=== PATIENT | male | born 1990 | race Caucasian/White ===

== ENCOUNTER 2022-08-12 19:37 | Emergency (ER) | payer OTHER, SELFPAY ==
[2022-08-12 19:46] VITALS: BP 124/62; PULSE 86; RESP 18; TEMP 37.3; O2SAT 100; BMI 23.5
--- NOTE | 2022-08-13 00:11 | ED_ITS ---
HPI - General Adult General Chief complaint: Skin/Abscess/Foreign Body Stated complaint: lump on L arm Time Seen by Provider: 08/12/22 23:28 Source: patient, RN notes reviewed and old records reviewed Mode of arrival: ambulatory Limitations: no limitations History of Present Illness HPI narrative: 32-year-old male who denies any past medical history presents for evaluation of left arm lump with redness. Patient reports for approximately 1 year he has had a small ball/lump to his left forearm just above his elbow He reports over last 2 days he has had redness to the area, increasing pain and the lump has been slowly growing in size Denies any trauma to the area He denies any IV drug abuse Denies any fevers or chills Related Data Previous Rx's Medication Instructions Recorded cephalexin 500 mg capsule 500 mg PO QID #28 caps 08/13/22 Allergies Allergy/AdvReac Type Severity Reaction Status Date / Time No Known Allergies Allergy Verified 08/12/22 21:26 Review of Systems Constitutional: Constitutional: Reports as per HPI, Denies chills, Denies fatigue, Denies fever(s) and Denies headache(s) ENT: Denies headache(s) Cardiovascular: Cardiovascular: Denies chest pain and Denies dyspnea Respiratory: Respiratory: Denies cough and Denies dyspnea Integumentary/Breasts: Skin/Breast: Reports erythema and Reports skin swelling Neurologic: Denies headache(s) and Denies focal weakness Endocrine: Endocrine: Denies fatigue PMFSH Social History Social History Advance Directives: No Advance Directives Information Provided: No Physical Exam ED Vital Signs: Vital Signs - 24 hr 08/12/22 19:46 Temperature 99.2 F Pulse Rate 86 Respiratory Rate 18 Blood Pressure 124/62 Pulse Oximetry 100 Oxygen Delivery Method Room Air BMI result Body Mass Index 23.5 Const General: healthy appearing, comfortable, no acute distress, alert and awake Nutritional Appearance: well nourished Orientation/consciousness: patient oriented x3 HENMT Head: Yes normocephalic and Yes atraumatic Resp Effort & Inspection: normal respiratory effort, able to speak in complete sentences and not labored Skin Other: Patient has an approximately 2 cm area of induration approximately 3 cm distally to the any good a fossa on the radial side. There is approximately 7 cm of erythema extending distally. No fluctuance or open wounds, no drainage. This area was traced with a surgical marker pen Neuro General: patient oriented x3 Cranial nerves: Yes Bilaterally intact EOM present Cognition (Neuro): normal cognition Extrem Other: Moving all extremities well without any obvious deformities Medical Decision Making Medical Decision Making MDM Narrative: Patient likely has infected sebaceous cyst. There is no obvious clear/drainable abscess. There is a indurated area where the patient previously had a lump. An d faint erythema extending distally. This appears to be a simple cellulitis. The patient has no evidence of sepsis, his vital signs are within normal limits. He is not diabetic. Will treat with cephalexin. Patient was given return precautions Differential Diagnosis Abscess Cellulitis Sebaceous cyst Infected sebaceous cyst Discharge Plan Discharge Clinical Impression: Cellulitis Patient Disposition: Home, Self-Care Instructions: Cellulitis (ED) Additional Instructions: You have a skin infection called cellulitis. It appears to be stemming from an area where you may have a sebaceous cyst Take the antibiotic cephalexin 4 times daily for the next 7 days Return to the ER sooner if you develop fevers, chills or the redness is expanding well past the surgical marker pen Prescriptions: New cephalexin 500 mg capsule 500 mg PO QID Qty: 28 0RF
[2022-08-13] MEDS: cephALEXin 500 MG CAPSULE PO (00:14)
== END 2022-08-13 00:26 | disposition home or self-care (01) ==
PROVIDERS: Emergency Provider Emergency Medicine Emergency Medical Services
DX: L03.114 Cellulitis of left upper limb (principal)
CPT/HCPCS: 99282; 99283

== ENCOUNTER → 2024-03-19 13:20 | Outpatient (BNVA) | payer OTHER, SELFPAY | PROVIDERS: Visit Provider Physician Assistant Medical | DX: S29.012A Strain of muscle and tendon of back wall of thorax, initial encounter (principal); W00.0XXA Fall on same level due to ice and snow, initial encounter | CPT/HCPCS: 99202 ==

== ENCOUNTER 2024-10-26 18:17 | Outpatient (REF) | payer BC, OTHER, SELFPAY ==
--- NOTE | ~2024-10-26 | MR_ITS ---
EXAMINATION: MR LUMBAR SPINE WITHOUT CONTRAST CLINICAL INFORMATION: Low back pain. COMPARISON: None available. TECHNIQUE: MRI of the lumbar spine was obtained using routine sequences without contrast. FINDINGS: Last rib-bearing vertebra labeled T12. No bone marrow STIR signal abnormality. Generalized decreased bone marrow signal in all sequences. Decreased intervertebral disc signal at L3-4 and L5-S1. Decreased intervertebral disc height at L5-S1. Schmorl node inferior endplate of L3 with associated hyperintense T2 STIR signal. Grade 1 retrolisthesis L5-S1. Conus medullaris ends at pedicle of L1 with normal signal. T12-L1: No disc herniation. No neuroforamina stenosis. L1-2: No disc herniation. No neuroforamina stenosis. L2-3: Broad-based disc bulging. Facet joint hypertrophy. Decreased AP diameter of the thecal sac. No central spinal canal or neuroforamina stenosis. L3-4: Broad-based disc bulging. Facet joint and ligamentum flavum hypertrophy. Reduced AP diameter of the thecal sac and the neural foramina. L4-5: Broad-based disc bulging abutting the L5 nerve roots on the lateral recesses. Facet joint and ligamentum flavum hypertrophy. Reduced AP diameter of the thecal sac and neuroforamina encroaching the neural elements. L5-S1: Right subarticular and foraminal broad-based disc herniation encroaching the right S1 nerve root. Facet joint hypertrophy bilaterally resulting in bilateral neuroforamina stenosis encroaching the L5 nerve roots. Reduced AP diameter of the thecal sac. No prevertebral compartment hematoma, mass or fluid collections. MR/MR lumbar spine wo con IMPRESSION: Right subarticular and foraminal broad-based disc herniation L5-S1 encroaching right S1 nerve root. Lumbar spondylosis L5-S1 and L4-5 resulting in central spinal canal and bilateral neuroforamina stenosis likely encroaching the neural roots. A lymphoproliferative disorder versus anemia should be considered.. Electronically signed by: Fahad Ruth MD 10/29/2024 07:16 AM EDT
--- OUTSIDE RECORDS SUMMARY | 2024-10-26 18:21 | XMS_ITS | Clinical Summary ---
Author Organization [facility] Address [address] [place] [address] Phone Care Team Providers Care Vascular Radiologist Name Role Phone Rashad Flores MD Unavailable Rian Duran PA-C Primary Care Provider [phone] Allergies No known active allergies Medications ibuprofen (ADVIL ORAL) Take by mouth as needed. Active traZODone (DESYREL) 50 MG tablet Take 0.5 tablets (25 mg total) by mouth nightly at bedtime as needed (insomnia). 7 tablet 10/16/2024 Active doxycycline monohydrate (MONODOX) 100 MG capsule Take 1 capsule (100 mg total) by mouth 2 (two) times a day. 20 capsule 10/19/2024 Active Active Problems Problem Noted Date Diagnosed Date Routine general medical exam ination at a health care facility 10/16/2024 Assessment & Plan (10/16/2024 2:19 PM EDT): We will obtain a CMP, lipid panel, TSH, and fasting glucose. Annual physical 1 year Malaise and fatigue 10/16/2024 Assessment & Plan (10/16/2024 2:21 PM EDT): Patient noted to have some history of insomnia and difficulty sleeping along with noted fatigue and memory issues. Patient notes that the memory issues are mild however the fatigue and insomnia have increased. He does have stress having a family, work and currently remodeling his house. Which could certainly play a role in the symptoms however he also works outside and has been bitten by ticks and has pulled them off. He denies any rashes. He denies any joint pain. -I will obtain vitamin B-12, thiamine, TSH, and Lyme titer. Penile abnormality 10/16/2024 Assessment & Plan (10/16/2024 2:23 PM EDT): Patient mentions that he has decrease sensation well receiving oral sex and vaginal intercourse. He states that he is often able to ejaculate with anal intercourse. Patient notes that he has had to masturbate in order to ejaculate often times after having intercourse. Patient notes that he does not have difficulty obtaining or sustaining an erection. Unclear etiology however concerned about nerve impingement versus other organic issues. He also mentions some anal leakage and therefore I will obtain an MRI of his lumbar/sacrum region given the symptoms to ensure that there is no nerve impingement -I will refer to urology Dr. Edwards Change in bowel habits 10/16/2024 Assessment & Plan (10/16/2024 2:30 PM EDT): Patient with changes in bowel habits over the course the last few months. He mentions that he has had multiple episodes of diarrhea over the course of each month along with noted anal leakage. Patient notes that he does not realize that he has to go and then sometimes notices some wetness. Notes that he sometimes does have solid stools. He also notes that there are times where there is blood noted on the toilet paper however not in the toilet. He has never had a colonoscopy. He does carry family history of colon cancer. No history of Crohn's or ulcerative colitis. He does mention some correlation with certain foods such as greasy and fried foods. Differential diagnosis includes food allergies, Crohn's, ulcerative colitis, IBS, or celiac's. Other options could be secondary to his low back pain -[facility] GI referral - Due to fecal incontinence such as anal leakage and correlation with penile abnormalities and back pain I have ordered MRI lumbar/sacrum imaging studies to be completed. Acute midline low back pain without sciatica Assessment & Plan (10/16/2024 2:27 PM EDT): Patient with a noted back pain who notes that is mainly midline. He denies any noted muscle spasms or radiation of pain weakness or tingling and numbness in his lower extremities. He is also noted to have some anal leakage and with the penile abnormalities I will order a MRI lumbar/sacrum for further evaluation. Other insomnia 10/16/2024 Assessment & Plan (10/16/2024 2:30 PM EDT): Patient with noted to difficulty falling asleep and staying asleep. Of note he does drink a significant amount of fluids prior to going to bed and has a Gatorade at his bedside. Patient notes that he usually gets up 2-3 times a night. He does note that when he is able to get back to sleep he dozes off for a little while and then is back up once again. Since that this has been ongoing since the passing of his dog and getting back in 2022. He also has a . He does have significant amount of stress between home, renovating the house, and work Discussed with him differential diagnoses that can include organic abnormalities such as vitamin deficiencies, thyroid, anxiety. He has tried melatonin in the past however this has not provided any relief. He has not tried Unisom [id number]. He is willing to try trazodone and we will start at a low dose at 25 mg p.o. nightly as needed. He will reach out to us to let us know if this is providing any relief Encounters Date Type Department Care Team Description 10/26/2024 9:29 AM EDT Hospital Encounter [address] [address] Rian Duran PA-C Arrived 10/23/2024 Telephone [facility] [address] [place] [address] Rian Duran PA-C Results 10/22/2024 Telephone [facility] [address] [place] [address] Uma Valencia CNP 10/16/2024 1:29 PM EDT - 10/16/2024 11:59 PM EDT Hospital Encounter [facility] [address] [place] [address] Rian Duran PA-C Discharge Disposition: Home or Self Care 10/16/2024 10:40 AM EDT Office Visit [facility] [address] [place] [address] Rian Duran PA-C Routine general medical examination at a health care facility (Primary Dx); Malaise and fatigue; Penile abnormality; Change in bowel habits; Acute midline low back pain without sciatica; Other insomnia 10/16/2024 Telephone [facility] [address] [place] [address] Rian Duran PA-C MRI testing 10/16/2024 Documentation [facility] [address] [place] [address] Rian Duran PA-C from Last 3 Months Immunizations Immunization Administration Dates Next Due DTP 08/17/1995, 2,1990,10/16,1990 Hepatitis B 06/16/1996,09/17/1995,08/17/1995 Hib, unspecified formulation 09/17/1991, 1990,1990,07/17 Influenza Trivalent Preserva tive Free IM 03/15/2008 MMR 08/17/1995,09/17/1991 Meningococcal MCV4P 03/14/2007 Polio - OPV 08/17/1995, 2,1990,07/17 Td (adult),2 Lf Tetanus Toxo id, PF, Adsorbed 10/25/2003 Tdap 09/06/2023,09/26/2013 Varicella 06/16/1996 Family History Medical History Relation Comments Heart attack Father No Known Problems Mother Colon cancer Paternal Aunt Alzheimer's disease Paternal Great-Grandmother Colon cancer Paternal Great-Grandmother No Known Problems Sister Relation Status Comments Father Alive Mother Alive Paternal Aunt Paternal Great-Grandmother Sister Alive Social History Tobacco Use Types Packs/Day Years Used Date Smoking Tobacco: Never Smokeless Tobacco: Never Tobacco Cessation:Counseling Given: Not Answered Alcohol Use Standard Drinks/Week Comments Yes 0 (1 standard drink = 0.6 oz pure alcohol) 1-2 drinks, Monthly or less, mixed drinks Child or Family Care Answer Date Record ed Do you have problems with on e of the following making it difficult for you to work, study, or receive health care? No 10/16/2024 Education Answer Date Recorded Are you interested in help w ith more adult education (for example, completing high school, GED, job training, learning the [place] language, technical skills, or developing parenting skills)? No 10/16/2024 Are you concerned about learning? Not on file 10/16/2024 No 10/16/2024 Yes 10/16/2024 Food Answer Date Recorded Within the past 6 months we worried whether our food would run out before we got money to buy more. Never True 10/16/2024 Within the past 6 months the food we bought just didn't last and we didn't have enough money to get more. Never True Residential Stability Answer Date Recor ded What is your housing situation today? I have jf sing 10/16/2024 How many times have you move d in the past 12 months? Zero (I did not move) 10/16/2024 Paying for Meds Answer Date Recorded Do you have trouble paying for medicines? No 10/16/2024 Paying Utility Bills Answer Date Record ed Do you have trouble paying your heating or elect ricity bill? No 10/16/2024 Transportation Answer Date Recorded Has the lack of transportati on kept you from medical appointments or from getting medications? No 10/16/2024 Unemployment Answer Date Recorded Are you currently unemployed or working on a part-time or temporary basis, and looking for work? No 10/16/2024 Digital Access Answer Date Recorded No 10/16/2024 Yes 10/16/2024 Do you have reliable internet access at home? Ye s 10/16/2024 Do you have a device (e.g., phone, tablet, computer) with a working camera? Yes 10/16/2024 Intimate Partner Violence Answer Date R ecorded Denied Basic Needs Not on file 10/16/2024 In the past 12 months have y ou been in a relationship with a person who hurts, threatens, or tries to control you? No 10/16/2024 Worried food would run out Not on file 07/15 /2025 In the past 12 months have y ou been in a relationship with a person who hurts, threatens, or tries to control you? No 10/16/2024 Sex and Gender Information Value Date Recorded Sex Assigned at Not on file Legal Sex Male 3:33 PM EST Gender Identity Not on file Sexual Orientation Not on file Last Filed Vital Signs Vital Sign Reading Time Taken Comments Blood Pressure 110/64 10/16/2024 10:53 AM EDT Pulse 60 10/16/2024 10:53 AM EDT Temperature - - Respiratory Rate 21 10/16/2024 10:5 3 AM EDT Oxygen Saturation 98% 10/16/2024 10: 53 AM EDT Inhaled Oxygen Concentration - - Weight 89.3 kg (196 lb 12.8 oz) 025 10:53 AM EDT Height 170.8 cm (5' 7.25 ) 10/16/2024 1 0:53 AM EDT Body Mass Index 30.59 10/16/2024 10:53 AM EDT Plan of Treatment Upcoming Encounters Date Type Department Care Team (Late st Contact Info) Description 01/22/2025 3:20 PM EDT Office Visit [facility] Internal Medicine [address] [place] [address] Rian Duran PA-C [address] [place] [address] 10/22/2025 9:00 AM EDT Office Visit [facility] [address] [place] [address] Rian Duran PA-C [address] [place] [address] Health Maintenance Due Date Last Done Comments COVID-19 VACCINE ( season) 2023 DEPRESSION SCREENING 10/16/2025 10/16/2024 Adult Td,Tdap Booster 09/05/2033 09/06/2023 , 09/26/2013, 10/25/2003 HIB VACCINES Completed 09/17/1991, 11/02, 1990, Additional history exists MENINGOCOCCAL VACCINES (ACWY) Completed 03/14/2007 HEPATITIS C SCREENING Completed 09/28/2022 HIV ONE-TIME SCREENING (18-65 YEARS) Completed 09/28/2022 SMOKING STATUS SCREENING (Once After 26 Yrs) Completed 10/16/2024 HEPATITIS A VACCINES Aged Out No long er eligible based on patient's age to complete this topic MENINGOCOCCAL VACCINES (B) Aged Out N o longer eligible based on patient's age to complete this topic PNEUMOCOCCAL VACCINES (0-49 years) Aged Out No longer eligible based on patient's age to complete this topic Medical Devices Not on file Procedures Procedure Name Priority Date/Time Associated Diagnosis Comments US ABDOMEN COMPLETE (ADULT) Routine 10/26/2024 10:00 AM EDT Elevated LFTs MRI SACRUM Routine 10/16/2024 2:24 PM EDT Acute midline low back pain without sciatica LYME WESTERN BLOT ONLY Routine 1:29 PM EDT LIPID PANEL Routine 10/16/2024 1:29 PM EDT Routine general medical examination at a health care facility TSH WITH REFLEX Routine 10/16/2024 1:29 PM EDT Routine general medical examination at a health care facility COMPREHENSIVE METABOLIC PANEL Routine 10/16/2024 1:29 PM EDT Routine general medical examination at a health care facility GLUCOSE, FASTING Routine 10/16/2024 1:29 PM EDT Routine general medical examination at a health care facility VITAMIN B12 Routine 10/16/2024 1:29 PM EDT Malaise and fatigue VITAMIN B1 (THIAMINE) Routine 10/16/2024 1:29 PM EDT Malaise and fatigue LYME SCREEN WITH REFLEX TO WESTERN BLOT, BLOOD Routine 10/16/2024 1:29 PM EDT Malaise and fatigue MRI LUMBAR SPINE Routine 10/16/2024 12:0 1 PM EDT Change in bowel habits OUTSIDE HIV Routine 09/28/2022 OUTSIDE HEPATITIS C VIRUS SCREENING Routine 09/28/2022 from Last 3 Months or Most Recently Relevant to Health Maintenance Results * US ABDOMEN COMPLETE (ADULT) (10/26/2024 10:00 AM EDT) Anatomical Region Laterality Modality Abdomen Ultrasound 10/26/2024 10:3 1 AM EDT Impressions 10/26/2024 10:33 AM EDT 1. Normal gallbladder. 2. No biliary ductal dilatation. 3. The liver is diffusely echogenic. This is a nonspecific finding indicating diffuse hepatocellular disease and limiting the sensitivity of this exam. In the correct clinical scenario, this commonly represents fatty liver. Within the limitations of this study, there is no sonographic evidence for focal hepatic lesion. Narrative 10/26/2024 10:33 AM EDT US ABDOMEN COMPLETE (ADULT) Referring clinician's provided indication for this examination in [facility]: abnormal hepatic function tests TECHNIQUE: Abdominal Ultrasound Complete. COMPARISON: None FINDINGS: Liver: Echogenic liver. Main Portal Vein: Patent with normal direction of flow. Gallbladder: No gallstones or gallbladder wall thickening. Becerra's Sign: Negative. Biliary: No intrahepatic or extrahepatic biliary ductal dilatation. The common bile duct measures 3 mm. Pancreas: Incompletely visualized. Spleen: The spleen is not enlarged, measuring 11.5 cm Kidneys: The right kidney measures 11.7 cm. The left kidney measures 11.8 cm. No hydronephrosis. No sonographic evidence for solid renal mass or shadowing stone. Aorta: Normal, where visualized sonographically. IVC: Normal intrahepatic segment. Procedure Note Hollis Horne MD - 10/26/2024 US ABDOMEN COMPLETE (ADULT) Referring clinician's provided indication for this examination in [facility]:abnormal hepatic function tests TECHNIQUE: Abdominal Ultrasound Complete. COMPARISON: None FINDINGS: Liver: Echogenic liver. Main Portal Vein: Patent with normal direction of flow. Gallbladder: No gallstones or gallbladder wall thickening. Becerra's Sign: Negative. Biliary: No intrahepatic or extrahepatic biliary ductal dilatation. The common bile duct measures 3 mm. Pancreas: Incompletely visualized. Spleen: The spleen is not enlarged, measuring 11.5 cm Kidneys: The right kidney measures 11.7 cm. The left kidney measures 11.8cm. No hydronephrosis. No sonographic evidence for solid renal mass orshadowing stone. Aorta: Normal, where visualized sonographically. IVC: Normal intrahepatic segment. IMPRESSION: 1. Normal gallbladder. 2. No biliary ductal dilatation. 3. The liver is diffusely echogenic. This is a nonspecific findingindicating diffuse hepatocellular disease and limiting the sensitivity ofthis exam. In the correct clinical scenario, this commonly representsfatty liver. Within the limitations of this study, there is nosonographic evidence for focal hepatic lesion. Rian Duran PA-C IMG US ABDOMEN Final Result * Glucose, fasting (10/16/2024 1:29 PM EDT) FASTING GLUCOSE 88 70 - 95 mg/dL [facility] Blood 10/16/2024 1:29 PM EDT 10/16/2024 1:34 PM EDT Rian Duran PA-C LAB BLOOD ORDERABLES Final Re sult [address] [address] * Lyme Western blot only (10/16/2024 1:29 PM EDT) IGG Immunoblot Negative Negative [facility] [address] IGG BANDS (KDA) p41 kDa [facility] [address] [facility] IGM Immunoblot Negative Negative [facility] [address] [facility] IGM BANDS (KDA) p23 kDa [facility] [address] Interpretation - Lyme SEE NOTE [facility] Comment: (NOTE) Specific serologic response to B. burgdorferi infection is not detected, but cannot rule out early infection during which low or undetectable antibody levels to B. burgdorferi may be present. If clinically indicated, a new serum specimen should be submitted in 7-14 days. ADDITIONAL INFORMATION Per CDC criteria, the Lyme IgG Immunoblot is interpreted as positive if IgG-class antibodies are detected to >=5 B. burgdorferi proteins, and the Lyme IgM Immunoblot is interpreted as positive if IgM-class antibodies are detected to >=2 B. burgdorferi proteins. Immunoblot patterns not meeting these criteria should not be interpreted as positive. Epitopes from certain B. burgdorferi proteins (e.g., p41) are conserved across other bacteria, which may lead to the detection of IgM- and/or IgG-class antibodies on the Lyme disease immunoblots in patients without Lyme disease. Immunoblot should only be ordered on specimens that are positive or equivocal by a FDA-licensed Lyme disease antibody screening test (e.g., EIA). Results of the Lyme IgM immunoblot should not be considered in patients with >= 30 days of symptoms. 10/16/2024 1:29 PM EDT 10/16/2024 1:34 PM EDT Rian Duran PA-C LAB BLOOD ORDERABLES Final Re sult Performing Organization Address [facility]/ZIP Co de Phone Number [facility] [place] [address] * (ABNORMAL) Lyme Screen with Reflex to Immunoblot, Blood (10/16/2024 1:29 PM EDT) [facility] Lyme AB IgG Negative Negative [facility] Lyme AB IgM Equivocal(A) Negative [facility] Comment:The Lyme Disease Ant ibody, Confirmation, Serum (Western Blot) has been reflexed. The results will follow. Blood 10/16/2024 1:29 PM EDT 10/16/2024 1:34 PM EDT Rian Duran PA-C LAB BLOOD ORDERABLES Final Re sult Performing Organization Address City/[facility]/ZIP Co de Phone Number [facility] [address] [place] [address] * (ABNORMAL) Comprehensive metabolic panel (10/16/2024 1:29 PM EDT) SODIUM 140 133 - 146 mmol/L [facility] POTASSIUM 4.4 3.3 - 5.1 mmol/L [facility] CHLORIDE 104 96 - 108 mmol/L [facility] CO2 23 21 - 35 mmol/L [facility] BUN 12 6 - 19 mg/dL [facility] CREATININE 0.80 0.5 - 1.5 mg/dL [facility] GLUCOSE 97 70 - 99 mg/dL [facility] ALBUMIN 4.7 3.9 - 4.8 g/dL [facility] TOTAL PROTEIN 7.9 6.5 - 8.0 g/dL [facility] CALCIUM 9.7 8.4 - 10.3 mg/dL [facility] ALKALINE PHOSPHATASE 83 39 - 117 U/L [facility] TOTAL BILIRUBIN 0.5 0.0 - 1.2 mg/dL [facility] AST 65(H) 0 - 37 U/L [facility] ALT 110(H) 0 - 40 U/L [facility] GLOBULIN 3.2 1 - 4.8 g/dL [facility] EGFR 119 >59 mL/min/1.7 3m2 [facility] Comment:Estimated glomerular filtration rate calculated using the CKD-EPI refit equation. ANION GAP 17 10 - 20 mmol/L [facility] Blood 10/16/2024 1:29 PM EDT 10/16/2024 1:34 PM EDT us Rian Duran PA-C LAB BLOOD ORDERABLES Final Re sult [facility] [address] [place] [address] * TSH with reflex (10/16/2024 1:29 PM EDT) TSH 0.90 0.27 - 4.20 uIU/mL [facility] Blood 10/16/2024 1:29 PM EDT 10/16/2024 1:34 PM EDT Rian Duran PA-C LAB BLOOD ORDERABLES Final Re sult Performing Organization Address [facility]/ZIP Co de Phone Number [address] [address] * Vitamin B1 (thiamine) (10/16/2024 1:29 PM EDT) VITAMIN B1 125 70 - 180 nmol/L [facility] Comment: (NOTE) ADDITIONAL INFORMATION This test was developed and its performance characteristics determined by [facility] in a manner consistent with CLIA requirements. This test has not been cleared or approved by the U.S. Food and Drug Administration. Blood 10/16/2024 1:29 PM EDT 10/16/2024 1:34 PM EDT Rian Duran PA-C LAB BLOOD ORDERABLES Final Re sult Performing Organization Address [facility] Co de Phone Number [facility] [address] [place] [address] * Vitamin B12 (10/16/2024 1:29 PM EDT) VITAMIN B12 481 232 - 1,245 pg/mL [facility] Blood 10/16/2024 1:29 PM EDT 10/16/2024 1:34 PM EDT Rian Duran PA-C LAB BLOOD ORDERABLES Final Re sult Performing Organization Address City/[facility]/ZIP Co de Phone Number [address] [address] * (ABNORMAL) Lipid panel (10/16/2024 1:29 PM EDT) HDL 37 mg/dL [facility] Comment: Interpretation <40 mg/dL: Low HDL cholesterol (major risk factor for CHD) Greater than or equal to 60 mg/dL: High HDL cholesterol ( negative risk factor for CHD) HDL - cholesterol is affected by a number of factors, e.g. smoking, excerise, hormones, sex and age. CHOLESTEROL 182 0 - 240 mg/dL [facility] TRIGLYCERIDES 214(H) 30 - 160 mg/dL [facility] LDL 102 50 - 129 mg/dL [facility] Comment: LDL levels in terms of risk for coronary heart disease: <100 mg/dL: Optimal 100-129 mg/dL: Near or above optimal 130-159 mg/dL: Borderline high 160-189 mg/dL: High >190 mg/dL: Very High CARDIAC RISK RATIO 4.9 3.4 - 5.0 [facility] Blood 10/16/2024 1:29 PM EDT 10/16/2024 1:34 PM EDT Result [facility] Rian Duran PA-C LAB BLOOD ORDERABLES Final Re sult Performing Organization Address City/State/[facility] Co de Phone Number [facility] [address] [place] [address] * Outside Hepatitis C Virus Screening (09/28/2022) Hepatitis C Screening - External Neg Historical Provider LAB BLOOD ORDERABLES Alexandra l Result * OUTSIDE HIV TEST (09/28/2022) HIV - External Neg Historical Provider LAB BLOOD ORDERABLES Alexandra l Result from Last 3 Months or Most Recently Relevant to Health Maintenance Insurance [facility] [place] [place] [address] [place] [address] [place] [address] [place] [address] [facility] Care Teams Vascular Radiologist Relationship Specialty Start Date End Date Rian Duran PA-C [address] [place], [place] [email or web address] PCP - General Physician Artificial Glass [employer] 10/16/24 Rashad Flores MD [address] [place], [place] [email or web address] Insurance Assigned Provider 05/12/24 Additional Source Comments The information contained in this document represents components of the legal health record. It is not the complete legal health record.[facility]
== END 2024-10-26 18:18 | disposition home or self-care (01) ==
LOC: HO.MRI 18:17
PROVIDERS: PCP Physician Assistant Surgical; Visit Provider Physician Assistant Surgical
DX: M54.50 Low back pain, unspecified (principal); R19.4 Change in bowel habit
CPT/HCPCS: 72148

== ENCOUNTER → 2024-10-26 18:29 | Outpatient (BNV) | payer BC, SELFPAY | PROVIDERS: PCP Physician Assistant Surgical; Visit Provider Radiology Diagnostic Radiology | DX: M54.50 Low back pain, unspecified (principal) | CPT/HCPCS: 72148 ==

== ENCOUNTER 2024-11-21 13:55 | Outpatient (AMB) | payer BC, SELFPAY ==
--- NOTE | 2024-11-21 14:08 | A.SPINEOV_ITS ---
Vital Signs 11/21/24 14:12 Height 5 ft 8 in Weight 198 lb BMI 30.1 Intake Visit Reasons: Disc protusion Intake Note: Mr. Dangelo is here today c/o low back pain Restaurant Assistant Required: No Allergies No Known Allergies Allergy (Verified 11/21/24 14:12) Physical Exam Vital Signs: BMI result Body Mass Index 30.1 Assessment & Plan Assessment & Plan (1) Lumbago: Code(s): M54.50 - Low back pain, unspecified Category: Medical Plan Dear ROBERT Duran, Thank you for referring Tee to our office today. He is a pleasant 34-year-old male who comes in today for evaluation of low back pain. 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 He reports that since then he has had occasional flare-ups of low back pain primarily occurring with twisting or reaching behind himself. He denies any shooting pains into his lower extremities, but does state that he has baseline right-sided knee pain from a previous injury. He denies any numbness/tingling associated with the pain. He denies any perineal numbness, or bowel/bladder incontinence. He reports that his pain is the worst when attempting to reach behind himself to scratch his back. He reports that in order to alleviate the pain he will occasionally take ibuprofen or Tylenol. This, he only does when his pain flares up after reaching movements. He has not been to physical therapy for this issue, and has also not attempted injections / prescription medications per his report. PMH: No past medical history reported by the patient. Social hx: The patient does not smoke, reports no substance use. Medications: Ibuprofen, tylenol. Allergies: NKDA Physical exam: The patient has 5/5 strength in his upper and lower extremities. He ambulates well and rises from a seated position without difficulty. His gait is non spastic and nonantalgic. He has no significant sensational deficits to light touch on examination. His reflexes are 2+ intact. (-) bilateral straight leg raise, (-) Merino's, (-) Clonus. Imaging review: MRI of the lumbar spine completed here at [facility] shows a disc herniation at L5-S1 causing what I would call mild-moderate right-sided foraminal stenosis and some effacement of the central canal. Impression: Tee is a pleasant 34-year-old male who comes in today for evaluation chronic longstanding low back pain. He denies any worsening of his symptoms over the course of the next 6 months-1 year. He states that primarily he is only symptomatic when attempting to reach behind him incomplete activity such as scratching his back. This will cause flare-ups of pain in his low back which she needs to treat with Tylenol/ibuprofen. We discussed the continuum of care options for this issue, including physical therapy and cortisone injections, and the patient would like to proceed with evaluation for potential cortisone injections. He states that he has tried physical therapy for his right-sided knee issues in the past, without significant relief of symptoms. I will place a referral for our colleagues in pain management to evaluate him for possible injections at L5-S1. Thank you for allowing us to care for your patient. The total time spent with this visit with this patient was 45 minutes reviewing history, physical exam, MRI imaging review, and implementation of treatment plan or further diagnostic testing Artis Hurt MD,PhD [facility] Orders: Referrals Pain Management Referral M54.50 - Low back pain, unspecified Coding Level of Care Code New Pt Level 4 (39712) Diagnoses Lumbago M54.50
[2024-11-21 14:12] VITALS: BMI 30.1
--- OUTSIDE RECORDS SUMMARY | 2024-11-21 14:52 | XMS_ITS | Clinical Summary ---
Author Organization [facility] Address [address] [place] [address] Phone Care Team Providers Care Painting Instructor Name Role Phone Rashad Flores MD Unavailable Rian Duran PA-C Primary Care Provider [phone] Allergies No known active allergies Medications ibuprofen [...] any relief. He has not tried Unisom [id number]. He is willing to try trazodone and we will start at a low dose at 25 mg p.o. nightly as needed. He will reach out to us to let us know if this is providing any relief Encounters Date Type Department Care Team Description 11/09/2024 Telephone [facility] [address] [place] [address] Rian Duran PA-C Results 10/29/2024 Orders Only [facility] [address] [place] [address] Provider, MD Saji 10/26/2024 9:29 AM EDT - 10/26/2024 11:59 PM EDT Hospital Encounter [address] [address] Rian Duran PA-C Discharge Disposition: Home or Self Care 10/23/2024 Telephone [facility] [address] [place] [address] Rian Duran PA-C Results 10/22/2024 Telephone [facility] [address] [place] [address] Uma Valencia CNP 10/16/2024 1:29 PM EDT - 10/16/2024 11:59 PM EDT Hospital Encounter [facility] [address] [place] [address] Rian Duran PA-C Discharge Disposition: Home or Self Care 10/16/2024 10:40 AM EDT Office Visit [facility] [address] [place] [address] Rian Duran PA-C Routine general medical examination at a health care facility (Primary Dx); Malaise and fatigue; Penile abnormality; Change in bowel habits; Acute midline low back pain without sciatica; Other insomnia 10/16/2024 Telephone [facility] [address] [place] [address] Rian Duran PA-C MRI testing 10/16/2024 Documentation [facility] [address] [place] [address] Rian Duran PA-C from Last 3 Months Immunizations Immunization Administration Dates Next Due DTP 08/17/1995, 2,1990,10/16,1990 Hepatitis B 06/16/1996,09/17/1995,08/17/1995 Hib, unspecified formulation 09/17/1991, 1990,1990,07/17 INFLUENZA, SPLIT VIRUS, TRIVALENT PF 03/15/2008 MMR 08/17/1995,09/17/1991 Meningococcal MCV4P 03/14/2007 Polio [...] high school, GED, job training, learning the Brazilian language, technical skills, or developing parenting skills)? [...] food would run out Not on file 10/16 In the past 12 months have y [...] Description 01/22/2025 3:20 PM EDT Office Visit [facility] [address] [place] [address] Rian Duran PA-C [address] [place] [address] [email or web address] 10/22/2025 9:00 AM EDT Office Visit [facility] [address] [place] [address] Rian Duran PA-C [address] [place] [address] [email or web address] Health Maintenance Due Date Last Done Comments COVID-19 VACCINE (2023- season) 2023 DEPRESSION SCREENING 10/16/2025 10/16/2024 Adult [...] Routine 10/26/2024 10:00 AM EDT Elevated LFTs OUTSIDE MR SPINE REPORT ONLY Routine 10/26/2024 7:45 AM EDT MRI SACRUM Routine 10/16/2024 2:24 PM EDT [...] clinician's provided indication for this examination in Epic: abnormal hepatic function tests TECHNIQUE: Abdominal Ultrasound [...] clinician's provided indication for this examination in Epic:abnormal hepatic function tests TECHNIQUE: Abdominal Ultrasound Complete. [...] PA-C IMG US ABDOMEN Final Result * Outside MR Spine Report Only (10/26/2024 7:45 AM EDT) Historical Provider MD PENALOZA MR SPINE Final Res ult * Glucose, fasting (10/16/2024 1:29 PM EDT) FASTING GLUCOSE 88 70 - 95 mg/dL [facility] Blood 10/16/2024 1:29 PM EDT 10/16/2024 1:34 PM EDT Rian Duran PA-C LAB BLOOD ORDERABLES Final Re sult Performing Organization Address [facility]/ZIP Co de Phone Number [facility] [address] [place] [address] * Lyme Western blot only (10/16/2024 1:29 PM EDT) IGG Immunoblot Negative Negative [facility] MED/[address] IGG BANDS (KDA) p41 kDa [facility]/[address] IGM Immunoblot Negative Negative [facility]/[address] IGM BANDS (KDA) p23 kDa [facility] MED/[address] Interpretation - Lyme SEE NOTE [facility] [address] Comment: (NOTE) Specific serologic response to B. [...] ORDERABLES Final Re sult Performing Organization Address [facility]/ZIP Co de Phone Number [facility] MED/[address] [place] [address] * (ABNORMAL) Lyme Screen with Reflex to Immunoblot, Blood (10/16/2024 1:29 PM EDT) Lyme AB IgG Negative Negative [facility] Lyme AB IgM Equivocal(A) Negative [facility] Comment:The Lyme Disease Ant ibody, Confirmation, Serum (Western Blot) has been reflexed. The results will follow. Blood 10/16/2024 1:29 PM EDT 10/16/2024 1:34 PM EDT us Rian Duran PA-C LAB BLOOD ORDERABLES Final Re sult [address] [address] * (ABNORMAL) Comprehensive metabolic panel (10/16/2024 1:29 PM EDT) SODIUM 140 133 - 146 mmol/L [facility] POTASSIUM 4.4 3.3 - 5.1 mmol/L [facility] CHLORIDE 104 96 - 108 mmol/L [facility] CO2 23 21 - 35 mmol/L [facility] BUN 12 6 - 19 mg/dL [facility] CREATININE 0.80 0.5 - 1.5 mg/dL [facility] GLUCOSE 97 70 - 99 mg/dL [facility] ALBUMIN 4.7 3.9 - 4.8 g/dL [facility] TOTAL PROTEIN 7.9 6.5 - 8.0 g/dL [facility] CALCIUM 9.7 8.4 - 10.3 mg/dL [facility] ALKALINE PHOSPHATASE 83 39 - 117 U/L [facility] TOTAL BILIRUBIN 0.5 0.0 - 1.2 mg/dL [facility] AST 65(H) 0 - 37 U/L [facility] ALT 110(H) 0 - 40 U/L [facility] GLOBULIN 3.2 1 - 4.8 g/dL [facility] EGFR 119 >59 mL/min/1.7 3m2 [facility] Comment:Estimated glomerular filtration rate calculated using the CKD-EPI refit equation. ANION GAP 17 10 - 20 mmol/L [facility] Blood 10/16/2024 1:29 PM EDT 10/16/2024 1:34 PM EDT Rian Duran PA-C LAB BLOOD ORDERABLES Final Re sult Performing Organization Address City/[facility]/ZIP Co de Phone Number [address] [address] * TSH with reflex (10/16/2024 1:29 PM EDT) [facility] TSH 0.90 0.27 - 4.20 uIU/mL [facility] Blood 10/16/2024 1:29 PM EDT 10/16/2024 1:34 PM EDT Rian Duran PA-C LAB BLOOD ORDERABLES Final Re sult Performing Organization Address [facility] de Phone Number [address] [address] * Vitamin B1 (thiamine) (10/16/2024 1:29 PM EDT) [facility] VITAMIN B1 125 70 - 180 nmol/L [facility] [address] Comment: (NOTE) ADDITIONAL INFORMATION This test was developed and its performance characteristics determined by [facility] in a manner consistent with CLIA requirements. This test has not been cleared or approved by the U.S. Food and Drug Administration. Blood 10/16/2024 1:29 PM EDT 10/16/2024 1:34 PM EDT us Rian Duran PA-C LAB BLOOD ORDERABLES Final Re sult Performing Organization Address [facility]/ZIP Co de Phone Number [facility] [address] [place] [address] * Vitamin B12 (10/16/2024 1:29 PM EDT) [facility] VITAMIN B12 481 232 - 1,245 pg/mL [facility] Blood 10/16/2024 1:29 PM EDT 10/16/2024 1:34 PM EDT Rian Duran PA-C LAB BLOOD ORDERABLES Final Re sult Performing Organization Address [facility]/ZIP Co de Phone Number [address] [address] * (ABNORMAL) Lipid panel (10/16/2024 1:29 PM EDT) HDL 37 mg/dL [facility] Comment: Interpretation <40 mg/dL: Low HDL cholesterol (major risk factor for CHD) Greater than or equal to 60 mg/dL: High HDL cholesterol ( negative risk factor for CHD) HDL - cholesterol is affected by a number of factors, e.g. smoking, excerise, hormones, sex and age. CHOLESTEROL 182 0 - 240 mg/dL [facility] TRIGLYCERIDES 214(H) 30 - 160 mg/dL [facility] LDL 102 50 - 129 mg/dL [facility] Comment: LDL levels in terms of risk for coronary heart disease: <100 mg/dL: Optimal 100-129 mg/dL: Near or above optimal 130-159 mg/dL: Borderline high 160-189 mg/dL: High >190 mg/dL: Very High CARDIAC RISK RATIO 4.9 3.4 - 5.0 [facility] Blood 10/16/2024 1:29 PM EDT 10/16/2024 1:34 PM EDT Rian Duran PA-C LAB BLOOD ORDERABLES Final Re sult Performing Organization Address City/[facility]/ZIP Co de Phone Number [address] [address] * Outside Hepatitis C Virus Screening (09/28/2022) Hepatitis C Screening - External Neg Historical Provider LAB BLOOD ORDERABLES Alexandra l Result * OUTSIDE HIV TEST (09/28/2022) HIV - External Neg us Historical Provider LAB BLOOD ORDERABLES Alexandra l Result from Last 3 Months or Most Recently Relevant to Health Maintenance [place] [address] [place] [address] [place] [address] [facility] Care Teams Painting Instructor Relationship Specialty Start Date End Date Rian Duran PA-C [address] [place] [phone] [email or web address] PCP - General Physician Actuarial Science Teacher 10/16/24 Rashad Flores MD [address] [place] [phone] [email or web address] Assigned Provider 05/12/24 Additional Source Comments The information contained in this document represents components of the legal health record. It is not the complete legal health record.[facility]
== END 2024-11-21 14:54 | disposition home or self-care (01) ==
LOC: HO.HNS 13:56
PROVIDERS: PCP Physician Assistant Surgical; Referring Provider Physician Assistant Surgical; Visit Provider Physician Assistant
DX: M54.50 Low back pain, unspecified (principal)
CPT/HCPCS: 99204

== ENCOUNTER 2025-01-04 09:47 | Outpatient (AMB) | payer BC, SELFPAY ==
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
[2025-01-04 09:51] VITALS: BP 110/68; PULSE 61; RESP 16; O2SAT 97; BMI 29.6
--- OUTSIDE RECORDS SUMMARY | 2025-01-04 10:24 | XMS_ITS | Clinical Summary ---
Author Organization [facility] Address [address] [place] [address] Phone Care Team Providers Care Mold Yarn Supervisor Name Role Phone Rashad Flores MD Unavailable Rian Duran PA-C Primary Care Provider [phone] Allergies No known active allergies Medications ibuprofen (ADVIL ORAL) Take by mouth as needed. Active doxycycline monohydrate (MONODOX) 100 MG capsule Take 1 capsule (100 mg total) by mouth 2 (two) times a day. 20 capsule 10/19/2024 Active traZODone (DESYREL) 50 MG tabletIndication s:Other insomnia Take 0.5 tablets (25 mg total) by mouth nightly at bedtime as needed (insomnia). 45 tablet 3 12/05/2024 Active Active Problems Problem Noted Date Diagnosed [...] be secondary to his low back pain -[facility] GI referral - Due to fecal [...] any relief. He has not tried Unisom [id number]. He is willing to try trazodone and we will start at a low dose at 25 mg p.o. nightly as needed. He will reach out to us to let us know if this is providing any relief Encounters Date Type Department Care Team Description 12/05/2024 Refill [facility] [address] [place] [address] Rian Duran PA-C Medication Refill 11/09/2024 Telephone [facility] [address] [facility] [address] Rian Duran PA-C Results 10/29/2024 Orders Only [facility] [address] [facility] [address] Provider, MD Saji 10/26/2024 9:29 AM EDT - 10/26/2024 11:59 PM EDT Hospital Encounter [address] [address] Rian Duran PA-C Discharge Disposition: Home or Self Care 10/23/2024 Telephone [facility] [address] [facility] [place] [address] Rian Duran PA-C Results 10/22/2024 Telephone [facility] [address] [place] [address] Uma Valencia CNP 10/16/2024 1:29 PM EDT - 10/16/2024 11:59 PM EDT Hospital Encounter [facility] [address] [place] [address] Rian Duran PA-C Discharge Disposition: Home or Self Care 10/16/2024 10:40 AM EDT Office Visit [facility] [address] [place] [address] Rian Duran PA-C Routine general medical examination at a health care facility (Primary Dx); Malaise and fatigue; Penile abnormality; Change in bowel habits; Acute midline low back pain without sciatica; Other insomnia 10/16/2024 Telephone [facility] [address] [place] [address] Rian Duran PA-C MRI testing 10/16/2024 Documentation [facility] [address] [place] [address] Rian Duran PA-C from Last 3 Months [...] high school, GED, job training, learning the Martiniquais language, technical skills, or developing parenting skills)? [...] Description 01/22/2025 3:20 PM EDT Office Visit [facility] [address] [place] [address] Rian Duran PA-C [address] [place] [address] 10/22/2025 9:00 AM EDT [facility] [place] [facility] [address] [place] [address] Rian Duran PA-C [address] [place] [address] [email or web address] Health Maintenance Due Date Last Done Comments INFLUENZA VACCINE (#1) 2024 03/15/2008 COVID-19 VACCINE ( season) 2024 DEPRESSION SCREENING 10/16/2025 10/16/2024 Adult Td,Tdap Booster [...] EDT Routine general medical examination at a [facility] care facility GLUCOSE, FASTING Routine 10/16/2024 1:29 PM EDT Routine general medical examination at a [facility] facility VITAMIN B12 Routine 10/16/2024 1:29 [...] nosonographic evidence for focal hepatic lesion. Rian PENALOZA US ABDOMEN Final Result * Outside MR Spine Report Only (10/26/2024 7:45 AM EDT) us Historical Provider MD PENALOZA MR SPINE Final Res ult * Glucose, fasting (10/16/2024 1:29 PM EDT) FASTING GLUCOSE 88 70 - 95 mg/dL [facility] Blood 10/16/2024 1:29 PM EDT 10/16/2024 1:34 PM EDT us Rian Duran PA-C LAB BLOOD ORDERABLES Final Re sult [facility] [address] [place] [address] * Lyme Western blot only (10/16/2024 1:29 PM EDT) Pathologist [facility] IGG Immunoblot Negative Negative [facility] [address] IGG BANDS (KDA) p41 kDa [facility]PATH [address] IGM Immunoblot Negative Negative [facility]PATH [address] IGM BANDS (KDA) p23 kDa [facility]PATH [address] Interpretation - Lyme SEE NOTE [facility] Comment: (NOTE) Specific serologic [...] ORDERABLES Final Re sult Performing Organization Address City/[facility]/ZIP Co de Phone Number [facility] [address] [place] [address] * (ABNORMAL) Lyme Screen with Reflex to Immunoblot, Blood (10/16/2024 1:29 PM EDT) Pathologist [facility] Lyme AB IgG Negative Negative [facility] Lyme AB IgM Equivocal(A) Negative [facility] Comment:The Lyme Disease Ant ibody, Confirmation, Serum (Western Blot) has been reflexed. The results will follow. Blood 10/16/2024 1:29 PM EDT 10/16/2024 1:34 PM EDT Rian Duran PA-C LAB BLOOD ORDERABLES Final Re [facility] Performing Organization Address [facility] Co de Phone Number [address] [address] * (ABNORMAL) Comprehensive metabolic panel (10/16/2024 1:29 PM EDT) [facility] SODIUM 140 133 - 146 mmol/L [facility] POTASSIUM 4.4 3.3 - 5.1 mmol/L [facility] CHLORIDE 104 96 - 108 mmol/L [facility] CO2 23 21 - 35 mmol/L [facility] BUN 12 6 - 19 mg/dL [facility] CREATININE 0.80 0.5 - 1.5 mg/dL [facility] GLUCOSE 97 70 - 99 mg/dL [facility] ALBUMIN 4.7 3.9 - 4.8 g/dL [facility] TOTAL PROTEIN 7.9 6.5 - 8.0 g/dL [facility] CALCIUM 9.7 8.4 - 10.3 mg/dL [facility] ALKALINE PHOSPHATASE 83 39 - 117 U/L [facility] TOTAL BILIRUBIN 0.5 0.0 - 1.2 mg/dL [facility] AST 65(H) 0 - 37 U/L [facility] ALT 110(H) 0 - 40 U/L [facility] GLOBULIN 3.2 1 - 4.8 g/dL [facility] EGFR 119 >59 mL/min/1.7 3m2 [facility] Comment:Estimated glomerular filtration rate calculated using the CKD-EPI refit equation. ANION GAP 17 10 - 20 mmol/L [facility] Blood 10/16/2024 1:29 PM EDT 10/16/2024 1:34 PM EDT Rian Duran PA-C LAB BLOOD ORDERABLES Final Re sult Performing Organization Address [facility] Co de Phone Number [address] [address] * TSH with reflex (10/16/2024 1:29 PM EDT) TSH 0.90 0.27 - 4.20 uIU/mL [facility] Blood 10/16/2024 1:29 PM EDT 10/16/2024 1:34 PM EDT Rian Duran PA-C LAB BLOOD ORDERABLES Final Re sult Performing Organization Address [facility] Co de Phone Number [address] [address] * Vitamin B1 (thiamine) (10/16/2024 1:29 PM EDT) VITAMIN B1 125 70 - 180 nmol/L [facility] Comment: (NOTE) ADDITIONAL INFORMATION This test was developed and its performance characteristics determined by [facility] in a manner consistent with CLIA requirements. This test has not been cleared or approved by the U.S. Food and Drug Administration. Blood 10/16/2024 1:29 PM EDT 10/16/2024 1:34 PM EDT Rian Duran PA-C LAB BLOOD ORDERABLES Final Re sult [facility]PATH [address] [place] [address] * Vitamin B12 (10/16/2024 1:29 PM EDT) VITAMIN B12 481 232 - 1,245 pg/mL [facility] Blood 10/16/2024 1:29 PM EDT 10/16/2024 1:34 PM EDT us Rian Duran PA-C LAB BLOOD ORDERABLES Final Re sult Performing Organization Address [facility] Co de Phone Number [address] [phone] * (ABNORMAL) Lipid panel (10/16/2024 1:29 PM EDT) HDL 37 mg/dL [facility] Comment: Interpretation <40 mg/dL: Low HDL cholesterol (major risk factor for CHD) Greater than or equal to 60 mg/dL: High HDL cholesterol ( negative risk factor for CHD) HDL - cholesterol is affected by a number of factors, e.g. smoking, excerise, hormones, sex and age. CHOLESTEROL 182 0 - 240 mg/dL [facility] TRIGLYCERIDES 214(H) 30 - 160 mg/dL [facility] LDL 102 50 - 129 mg/dL [facility] Comment: LDL levels in terms of risk for coronary heart disease: <100 mg/dL: Optimal 100-129 mg/dL: Near or above optimal 130-159 mg/dL: Borderline high 160-189 mg/dL: High >190 mg/dL: Very High CARDIAC RISK RATIO 4.9 3.4 - 5.0 [facility] Blood 10/16/2024 1:29 PM EDT 10/16/2024 1:34 PM EDT us Rian Duran PA-C LAB BLOOD ORDERABLES Final Re sult Performing Organization Address City/[facility]/ZIP Co de Phone Number [address] [phone] * Outside Hepatitis C Virus Screening (09/28/2022) Hepatitis C Screening - External Neg Historical Provider LAB BLOOD ORDERABLES Alexandra l Result * OUTSIDE HIV TEST (09/28/2022) HIV - External Neg Historical Provider LAB BLOOD ORDERABLES Alexandra l Result from Last 3 Months or Most Recently Relevant to Health Maintenance [place] [address] [place] [address] [place] [address] [place] [address] [place] [address] [place] [address] Care Teams Mold Yarn Supervisor Relationship Specialty Start Date End Date Rian Duran PA-C [address] [place] [address] [email or web address] PCP - General Physician Manager English 10/16/24 Rashad Flores MD [address] [place] [address] [email or web address] Insurance Assigned Provider 05/12/24 Additional Source Comments The information contained in this document represents components of the legal health record. It is not the complete legal health record.[facility]
== END 2025-01-04 10:44 | disposition home or self-care (01) ==
LOC: HO.PMC 09:48
PROVIDERS: PCP Physician Assistant Surgical; Visit Provider Internal Medicine
DX: M51.360 Other intervertebral disc degeneration, lumbar region with discogenic back pain only (principal)
CPT/HCPCS: 99203